=== PATIENT | male | born 1980 | race Caucasian/White ===

== ENCOUNTER 2016-11-11 08:47 | Day surgery (SDC) | payer MEDICAID ==
--- NOTE | 2016-11-11 09:14 | OR ---
Anesthesia Pre Procedure Eval Date of Service: 11/11/16 Pre Procedure Evaluation: Last Vital Signs Temp 11/11/2016 0900 Pulse 11/11/2016 0900 Resp 11/11/2016 0900 BP 11/11/2016 09 Pulse Ox 11/11/2016899 DATE: 11/11/2016 TIME: 904 INDICATIONS: Spondylosis, spinal stenosis C5 6, C6 7, neck and shoulder pain with radicular symptoms to the right middle and ring finger. PAST MEDICAL HISTORY: Mr. Cesar has had a history of neck and arm pain he has had previous VALERIO prior to cervical spine surgery several years ago. He relates some relief after his surgery however the pain has over the past few months increased in intensity and consistency. He had sought treatment in the Emergency Room in August for the Same Type of Pain. EXAM: Heart S1-S2 regular; lungs clear bilaterally ASSESSMENT OF MEDICAL STATUS: Mr. Cesar has had a previous VALERIO with which he was quite uncomfortable and requested sedation prior to this procedure. Dr. Nelson had ordered Valium by mouth she did take at 800 but has yet to have any obvious effects from it. I discussed in depth the reason for not sedating cervical epidural injections and he voices understanding and acceptance of the procedure as stated. PLANNED PROCEDURE: Cervical epidural steroid injection Home Medications: HOME MEDICATIONS Cyclobenzaprine HCl [Flexeril] 10 mg PO TID PRN 08/26/16 [Last Taken 08/26/16 15 :45] Naproxen Sodium [Aleve] 1 tab PO PRN PRN 08/26/16 [Last Taken 08/26/16 14:00] Hydrocodone/Acetaminophen [Vicodin 5-300 mg Tablet] 1 each PO Q12H 11/08/16 [ Last Taken Unknown] Rosuvastatin Calcium [Crestor] 10 mg PO DAILY 11/08/16 [Last Taken Unknown]
[2016-11-11] MEDS: LIDOCAINE HCL/PF 5 ML VIAL IJ ONE (10:14)
[2016-11-11] MEDS: DEXAMETHASONE SOD PHOSPHATE 10 MG/ML VIAL IJ ONE (10:14)
[2016-11-11] MEDS: IOPAMIDOL 20 ML VIAL IJ ONE (10:15)
--- NOTE | 2016-11-11 10:40 | OR ---
Anesthesia Procedure Note - Anesthesia Procedure Note Date of Service: 11/11/16 Narrative: Vital Signs - Last Taken Temp 37.2 C 11/11/16 09:11 Pulse 82 11/11/16 10:20 Resp 18 11/11/16 10:20 BP 105/43 11/11/16 10:20 Pulse Ox 98 11/11/16 10:20 O2 Oxygen Delivery Method Room Air 11/11/16 10:36 ANESTHESIA PROCEDURE NOTE Date of Procedure: 11/11/2016 Time of procedure: 10:00. Performed by: Kendall Gaines CRNA, ENGINE OILER, MSN Special Procedures Tech: Isela Bosch RN. Preprocedure diagnosis: Spinal stenosis neck pain and radicular pain right greater than left. Post procedure diagnosis: Same. Procedure: Epidural Steroid Injection C7-T1. Indications: Neck and radicular pain. Findings: See below. Details of the procedure: After the MRI report and films were reviewed the patient was interviewed, explaination of the procedure and risks was given. The patient was brought to or #2 and was placed in the prone position. The neck was prepped with DuraPrep and draped in a sterile fashion. The cervical area was identified under fluoroscopy and the C7-T1 space was localized with 1% lidocaine solution. The epidural space was identified using loss of resistance technique using a #20-gauge Touhy needle. A lateral view was obtained and a quarter milliliter of Isovue was injected demonstrating position in the epidural space. The C-arm was then reoriented to an AP view and Isovue 200 2 milliliters was injected demonstrating a spread at the affected area. Dexamethasone 10mg and lidocaine 1% 2 mL was injected, stylette was replaced and the epidural needle removed. A Band-Aid was then applied to the injection site, patient was placed in a supine position for 5 minutes then returned to ASU with good relief of pain, from 5/10 to 0/10. EBL: Minimal/negative. Energy: 21 Seconds, 2.44 mGy Fluids: N/A. Specimen: N/A. Post procedure condition: The patient tolerated the procedure well. No complications were noted. Thank you for this consultation. Kendall Gaines CRNA, MSN, ENGINE OILER
[2016-11-11 11:08] VITALS: BP 125/56
== END 2016-11-11 08:48 | disposition home or self-care (01) ==
LOC: AMB 08:47
PROVIDERS: ATTEND Family Medicine
PROC: 3E0S3BZ Introduction of Anesthetic Agent into Epidural Space, Percutaneous Approach (ICD-10-PCS; 2016-11-11)
PROC: 3E0S33Z Introduction of Anti-inflammatory into Epidural Space, Percutaneous Approach (ICD-10-PCS; principal; 2016-11-11 09:30)
DX: M48.02 Spinal stenosis, cervical region (principal); M54.12 Radiculopathy, cervical region; Z68.34 Body mass index [BMI] 34.0-34.9, adult